=== PATIENT | female | born 1960 | race Caucasian/White ===

== ENCOUNTER 2016-04-01 14:30 | Emergency (ER) | payer OTHER ==
[2016-04-01 14:49] VITALS: BP 150/84; PULSE 82; TEMP 98; BMI 33.3
--- NOTE | 2016-04-01 15:58 | PDOC ---
History of Present Illness - General Chief Complaint: Injury Stated Complaint: SWOLLEN LT HAND Time Seen by Provider: 04/01/16 15:46 History Source: Patient Exam Limitations: No Limitations - History of Present Illness Initial Comments: 04/01/16 16:51 CHIEF COMPLAINT: Left hand pain with some swelling HISTORY OF PRESENT ILLNESS: This is a 55-year-old female with a history of hypertension and arthritis here today with continued tenderness and swelling over her left dorsal third distal metacarpal joint. Patient reports that in she was hit in her left hand by a heavy food cart at work at [employer]. Patient applied ice to the area and thought the swelling would go down however it has decreased but still continues to be painful. Patient is right hand dominant. Patient denies any numbness of her left hand patient has full range of motion of digits on left hand and wrist. Patient denies any other injury. Patient reports that area continues to be tender when touched. Occurred: reports: other (2016) Severity: reports: mild Pain Location: reports: upper extremity (left dorsal hand over 3rd metacarpal swelling and pain) Method of Injury: Yes: direct blow (by a food cart at work at [employer] on 03/23/16) Modifying Factors: improves with: pain medication Loss of Consciousness: no loss of consciousness Associated Symptoms (Fall): denies symptoms Past History - Past Medical History Allergies/Adverse Reactions: Allergies Allergy/AdvReac Type Severity Reaction Status Date / Time No Known Allergies Allergy Verified 04/01/16 14:50 Home Medications: Ambulatory Orders Amlodipine Besylate [Norvasc] 10 mg PO DAILY 08/30/12 Acetaminophen W/ Codeine #3 [Tylenol # 3] 2 combo PO Q6H #20 tablet MDD 8 Anemia: No Asthma: No Cancer: No Cardiac Disorders: No CVA: No COPD: No CHF: No Dementia: No Diabetes: No GI Disorders: No Disorders: No HTN: Yes Hypercholesterolemia: No Liver Disease: No Seizures: No Thyroid Disease: No Other medical history: arthritis - Surgical History Abdominal Surgery: No Cardiac Surgery: No Lung Surgery: No Neurologic Surgery: No Orthopedic Surgery: No - Family Disease History Family Disease History: Diabetes: Mother - Reproductive History Oophorectomy: Yes - Psycho/Social/Smoking Cessation Hx Suicidal Ideation: No Smoking Status: No Smoking History: Current every day smoker Have you smoked in the past 12 months: No Number of Cigarettes Smoked Daily: 10 If you are a former smoker, when did you quit?: JUNE 1999 Information on smoking cessation initiated: No Hx Alcohol Use: Yes (SOCIAL) Drug/Substance Use Hx: No Substance Use Type: None Hx Substance Use Treatment: Yes ([facility]INCE 1997) Trauma Specific PMHX - Complaint Specific PMHX Back Injury: No Neck Injury: No Review of Systems - Review of Systems Able to Perform ROS?: Yes Constitutional: No: Symptoms Reported HEENTM: No: Symptoms Reported Respiratory: No: Symptoms reported Cardiac (ROS): No: Symptoms Reported ABD/GI: No: Symptoms Reported : No: Symptoms Reported Musculoskeletal: Yes: Joint Pain (left dorsal hand over 3rd mcp jt distally), Joint Swelling (left 3rd distal mcp jt ) Integumentary: No: Symptoms Reported Neurological: No: Symptoms reported *Physical Exam - Vital Signs Last Vital Signs Temp Pulse Resp BP Pulse Ox 98.0 F 82 20 150/84 99 04/01/16 14:46 04/01/16 14:46 04/01/16 14:46 04/01/16 14:46 04/01/16 14:46 - Physical Exam General Appearance: Yes: Appropriately Dressed Comments:: 04/01/16 16:49 radial pulse left 4 + Extremity: positive: Normal Capillary Refill, Normal Range of Motion, Tender ( over left 3rd distal mcp jt), Swelling (left 3rd distal dorsal metacarpal jt ) Integumentary: positive: Swelling (over left 3rd distal dorsal mcp jt ) Neurologic: positive: Alert, Normal Response, Motor Strength 5/5 (left hand and all digits ), Respond to painful stimul (left hand ), Responsive. negative: Numbness, Sensory Deficit Medical Decision Making - Medical Decision Making 04/01/16 16:51 04/01/16 16:53 This is a 55-year-old female with a history of hypertension and arthritis here today with continued tenderness and swelling over her left dorsal third distal metacarpal joint. Patient reports that in 03/23/2016 she was hit in her left hand by a heavy food cart at work at [employer] [facility]. Patient applied ice to the area and thought the swelling would go down however it has decreased but still continues to be painful. Patient is right hand dominant. Patient denies any numbness of her left hand patient has full range of motion of digits on left hand and wrist. Patient denies any other injury. Patient reports that area continues to be tender when touched. After hand rule out fracture of third metacarpal joint Left hand contusion over third metacarpal joint Plan: X-ray left hand no fracture noted Patient to follow up with orthopedist if pain continues and left dorsal hand Patient has pain medication at home *DC/Admit/Observation/Transfer Diagnosis at time of Disposition: Contusion of hand, left Qualifiers: Encounter type: initial encounter Qualified Code(s): S60.222A - Contusion of left hand, initial encounter - Discharge Dispostion Disposition: HOME Condition at time of disposition: Stable - Referrals Referrals: Flaquita Jenkins [Primary Care Provider] - Aric Staley MD [Staff Physician] - - Patient Instructions Additional Instructions: Avoid strenuous activities with left hand Follow up with orthopedist if pain continues and left hand Take pain medications as previously prescribed that you have at home Return to emergency room if any numbness of left hand or fingers Patient voiced understanding of discharge instructions all questions were answered
== END 2016-04-01 17:07 | disposition home or self-care (01) ==
LOC: JERFT 14:30
DX: S60.222A Contusion of left hand, initial encounter (principal); W20.8XXA Other cause of strike by thrown, projected or falling object, initial encounter; Y93.89 Activity, other specified; Y92.239 Unspecified place in hospital as the place of occurrence of the external cause; Y99.0 Civilian activity done for income or pay; I10 Essential (primary) hypertension; F17.210 Nicotine dependence, cigarettes, uncomplicated
CPT/HCPCS: 73130-TC-LT; 99281-25

== ENCOUNTER 2016-10-17 15:08 | Emergency (ER) | payer SELFPAY ==
[2016-10-17 15:20] VITALS: BP 192/76; PULSE 94; TEMP 97.9; BMI 33.7
--- NOTE | 2016-10-17 17:45 | PDOC ---
History of Present Illness - General Chief Complaint: Pain Stated Complaint: FOOT PAIN Time Seen by Provider: 10/17/16 15:48 History Source: Patient Exam Limitations: No Limitations - History of Present Illness Initial Comments: 10/17/16 17:41 CHIEF COMPLAINT: Left heel pain HISTORY OF PRESENT ILLNESS: Patient is a 56-year-old female presents emergency department presents emergency Department with left heel pain. Patient denies any trauma, denies wearing any new shoes, no bruising or erythema or edema. Able to ambulate Without difficulty. Occurred: reports: just prior to arrival Severity: Yes: moderate Lower Extremity Pain Location: left: heel Modifying Factors: improves with: None Past History - Past Medical History Allergies/Adverse Reactions: Allergies Allergy/AdvReac Type Severity Reaction Status Date / Time No Known Allergies Allergy Verified 10/17/16 15:11 Home Medications: Ambulatory Orders Amlodipine Besylate [Norvasc] 10 mg PO DAILY 08/30/12 Ibuprofen [Motrin -] 600 mg PO QID #28 tablet 10/17/16 Anemia: No Asthma: No Cancer: No Cardiac Disorders: No CVA: No COPD: No CHF: No Dementia: No Diabetes: No GI Disorders: No Disorders: No HTN: Yes Hypercholesterolemia: No Liver Disease: No Seizures: No Thyroid Disease: No - Surgical History Abdominal Surgery: No Cardiac Surgery: No Lung Surgery: No Neurologic Surgery: No Orthopedic Surgery: No - Family Disease History Family Disease History: Diabetes: Mother - Reproductive History Oophorectomy: Yes - Psycho/Social/Smoking Cessation Hx Suicidal Ideation: No Smoking Status: No Smoking History: Current every day smoker Have you smoked in the past 12 months: No Number of Cigarettes Smoked Daily: 15 If you are a former smoker, when did you quit?: JUNE 1999 Information on smoking cessation initiated: No Hx Alcohol Use: Yes (SOCIAL) Drug/Substance Use Hx: No Substance Use Type: None Hx Substance Use Treatment: Yes ([facility]INCE 1997) Review of Systems - Review of Systems Constitutional: No: Symptoms Reported Musculoskeletal: Yes: Other (pain on palpation to heal, no erythema edema or palpable mass. No bruising.). No: Symptoms Reported, Joint Pain Integumentary: No: Bruising, Erythema Neurological: No: Symptoms reported Hematologic/Lymphatic: No: Symptoms Reported All Other Systems: Reviewed and Negative *Physical Exam - Vital Signs Last Vital Signs Temp Pulse Resp BP Pulse Ox 97.9 F 94 H 18 192/76 100 10/17/16 15:11 10/17/16 15:11 10/17/16 15:11 10/17/16 15:11 10/17/16 15:11 - Physical Exam General Appearance: Yes: Appropriately Dressed. No: Apparent Distress Musculoskeletal: positive: Normal Inspection Extremity: positive: Normal Capillary Refill, Normal Inspection, Normal Range of Motion. negative: Tender, Swelling, Erythema, Inflammation Integumentary: positive: Normal Color, Dry. negative: Erythema, Swelling, Ecchymosis, Bruising Neurologic: positive: Alert, Normal Mood/Affect, Normal Response, Motor Strength 07/03 ED Treatment Course - RADIOLOGY Radiology Studies Ordered: Category Date Time Status FOOT-LEFT [RAD] Stat Radiology 10/17/16 16:01 Taken Medical Decision Making - Medical Decision Making 10/17/16 17:43 A/P: Patient with left heel pain, wet read of x-ray demonstrates heel spur will DC patient home on anti-inflammatories, follow-up with podiatry. *DC/Admit/Observation/Transfer Diagnosis at time of Disposition: Heel spur Qualifiers: Laterality: left Qualified Code(s): M77.32 - Calcaneal spur, left foot - Discharge Dispostion Disposition: HOME Condition at time of disposition: Good Admit: No - Prescriptions Prescriptions: Ibuprofen [Motrin -] 600 mg PO QID #28 tablet - Referrals Referrals: Flaquita Jenkins [Primary Care Provider] - Alex Colmenares MD [Staff Physician] - - Patient Instructions Printed Discharge Instructions: Heels That Hurt Additional Instructions: Ice to heel. Follow up with podiatry. Wear soft, well fitting shoes. - Post Discharge Activity Work/School Note: Back to Work
== END 2016-10-17 17:53 | disposition home or self-care (01) ==
LOC: JERFT 15:08
DX: M77.32 Calcaneal spur, left foot (principal); I10 Essential (primary) hypertension
CPT/HCPCS: 73630-TC-LT; 99281-25